=== PATIENT | female | born 1985 | race Caucasian/White ===

== ENCOUNTER 2021-03-28 01:49 | Emergency (ER) | payer OTHER ==
[~2021-03-28] VITALS: Ht 154.9 cm; Wt 54.4 kg
[~2021-03-28 01:49] MED LIST: birthcontrol
[2021-03-28 02:57] LABS: ANION GAP 7 mmol/L (7-16); BUN 6 mg/dL (7-18); CALCIUM 8.7 mg/dL (8.5-10.1); CHLORIDE 104 mmol/L (98-107); CO2 27 mmol/L (21-32); CREATININE 0.6 mg/dL (0.6-1.3); GLUCOSE 99 mg/dL (70-99); POTASSIUM 3.5 mmol/L (3.5-5.1); SODIUM 138 mmol/L (136-145)
[2021-03-28 03:02] LABS: ALBUMIN 3.4 g/dL (3.4-5.0); ALKALINE PHOSPHATASE 50 U/L (46-116); HEMOGLOBIN 13.3 gm/dL (12.0-15.0); MCH 32.9 pg (26.0-34.0); MCV 93.9 fL (80.0-100.0); MPV 7.4 fl. (7.2-11.1); RBC 4.05 mil/uL (4.20-5.00); RDW-CV 12.4 % (10.5-14.5); SGOT 18 U/L (15-37); SGPT 11 U/L (30-65); TOTAL BILIRUBIN < 0.1 mg/dL (<0.1-1.0); TOTAL PROTEIN 6.6 g/dL (6.4-8.2)
[2021-03-28] MEDS ORDERED: NORFLEX100 MG PO (03:18)
[2021-03-28] MEDS ORDERED: TORADOL 10 MG T10 MG PO (03:18)
[2021-03-28 03:37] VITALS: BP 112/72
--- NOTE | 2021-03-28 10:33 | EKG ---
[place] [address] ELECTROCARDIOGRAM REPORT Name: CHRISTIN ROBERT Room: [facility]#: [id number] Admission: 03/28/21 Attend Phys: Discharge: 03/28/21 Date of : 85 Date of Service: 03/28/21 0200 Report #: [id number] THIS REPORT FOR: //name// [facility] ED Test Date: 2021-03-28 Test Time: 02:00:05 Pat Name: CHRISTIN LEY Department: Room: Gender: F Butt Presser: [facility] : 1985 Requested By: Margaret Suh Order Number: [id number] MD: Dilshad Hood Measurements Intervals [place] Rate: 79 P: 43 HI: 143 QRS: 25 QRSD: 106 T: 35 QT: 377 QTc: 433 Interpretive Statements Sinus rhythm No previous ECG available for comparison Electronically Signed On 03-28-2021 10:33:04 CDT by Dilshad Hood [email or web address] <ELECTRONICALLY SIGNED> By: Dilshad Hood MD, [facility] 03/28/21 1033 0200 0200 Dilshad Hood MD, FACC /EPI
== END 2021-03-28 03:37 | disposition home or self-care (01) ==
LOC: M.ERS 01:49
PROVIDERS: Personal Emergency Response Attendant
DX: M54.5 Low back pain (principal); M62.838 Other muscle spasm; M54.10 Radiculopathy, site unspecified

== ENCOUNTER 2021-07-04 15:10 | Emergency (ER) | payer OTHER ==
[~2021-07-04] VITALS: Ht 154.9 cm; Wt 54.0 kg
[~2021-07-04 15:10] MED LIST changes: +NORFLEX100 MG PO; +TORADOL 10 MG T10 MG PO
[2021-07-04 16:05] LABS: ABSOLUTE LYMPHOCYTES 1.9 thou/uL (0.8-5.3); ABSOLUTE MONOCYTES 0.4 thou/uL (0.0-1.2); ABSOLUTE NEUTROPHILS 2.8 thou/uL (1.6-8.1); BASOPHILS 0.5 %; EOSINOPHILS 0.9 %; HEMATOCRIT 42.3 % (37.0-47.0); HEMOGLOBIN 14.6 gm/dL (12.0-15.0); LYMPHOCYTES 37.2 %; MCH 32.1 pg (26.0-34.0); MCHC 34.5 g/dL (28.0-37.0); MCV 93.3 fL (80.0-100.0); MONOCYTES 7.5 %; MPV 7.3 fl. (7.2-11.1); NUCLEATED RBCS 0 /100WBC; PLATELET COUNT* 253 thou/uL (150-400); POLYS 53.9 %; RBC 4.54 mil/uL (4.20-5.00); RDW-CV 12.2 % (10.5-14.5); WBC 5.2 thou/uL (4.0-11.0)
[2021-07-04 16:12] LABS: CALCIUM 8.7 mg/dL (8.5-10.1); CREATININE 0.7 mg/dL (0.6-1.3); POTASSIUM 3.4 mmol/L (3.5-5.1)
[2021-07-04 16:16] LABS: ALBUMIN 3.9 g/dL (3.4-5.0); TOTAL BILIRUBIN 0.3 mg/dL (<0.1-1.0); TOTAL PROTEIN 7.4 g/dL (6.4-8.2)
[2021-07-04 17:06] LABS: URINE BILIRUBIN NEGATIVE (Negative); URINE BLOOD 3+ (Negative); URINE CLARITY SL CLOUDY; URINE COLOR YELLOW; URINE GLUCOSE-RANDOM NEGATIVE (Negative); URINE KETONES 2+ (Negative); URINE PROTEIN NEGATIVE (Negative); URINE SPECIFIC GRAVITY 1.025 (1.005-1.030); URINE UROBILINOGEN 0.2 E.U./dl (0.2-1.0)
[2021-07-04 17:11] LABS: URINE LEUKOCYTES-REFLEX 2+ (Negative); URINE NITRITE-REFLEX POSITIVE (Negative)
[2021-07-04 17:14] LABS: BACTERIA-REFLEX >30 Many /HPF (None Seen); SQUAMOUS >10 Many /LPF (0-3)
[2021-07-04 17:15] LABS: CASTS None Seen /LPF (None Seen); CRYSTALS None Seen /LPF (None Seen)
[2021-07-04] MEDS ORDERED: BACTRIM DS TAB1 EAC1 PO (17:29)
[2021-07-04] MEDS ORDERED: HYDROCORTISONE30 G9 RECTAL (17:29)
[2021-07-04] MEDS ORDERED: DULCOLAX STOOL100 M1 PO (17:29)
[2021-07-04 17:49] VITALS: BP 85/56
== END 2021-07-04 17:50 | disposition home or self-care (01) ==
LOC: M.ERS 15:10
PROVIDERS: Emergency Medicine Emergency Medical Services
DX: K64.4 Residual hemorrhoidal skin tags (principal); N39.0 Urinary tract infection, site not specified